=== PATIENT | female | born 1965 | race Caucasian/White ===

== ENCOUNTER 2017-01-10 14:02 | Inpatient (IN) ==
[2017-01-10] MEDS ORDERED: HYDROmorphone 2 MG/1 ML VIAL IV STA (14:18)
[2017-01-10] MEDS ORDERED: ONDANSETRON 4 MG/2 ML VIAL IV STA (14:18)
[2017-01-10] MEDS ORDERED: ONDANSETRON 4 MG/2 ML VIAL ONE (14:39)
[2017-01-10] MEDS ORDERED: HYDROmorphone 2 MG/1 ML VIAL ONE (14:39)
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
[2017-01-10] MEDS ORDERED: ONDANSETRON 4 MG/2 ML VIAL IV PRN (14:58)
[2017-01-10] MEDS ORDERED: KETOROLAC 15 MG/1 ML VIAL IV PRN (14:58)
[2017-01-10] MEDS ORDERED: HYDROmorphone 2 MG/1 ML VIAL IV PRN (14:58)
[2017-01-10] MEDS ORDERED: DEXTROSE 5% NACL 0.45% 1,000 ML IV SCH (15:00)
[2017-01-10 15:36] LABS: Hematocrit 31.5 VOL% (35.7-47.0); Hemoglobin 9.6 GM/DL (12.0-16.0)
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
[2017-01-10] MEDS ORDERED: oxyCODONE/ACETAMINOPHEN 5-325 MG TABLET PO PRN (16:34)
[2017-01-10] MEDS: LACTATED RINGERS 1,000 ML IV SCH (17:11)
[2017-01-10 17:52] LABS: Apearance,Urine CLEAR (Clear); Bilirubin,Urine Negative (Negative); Blood, Urine Moderate mg/dL (Negative); Glucose,Urine (UA) Negative (Negative); Ketones,Urine Negative (Negative); Nitrite,Urine Negative (Negative); Protein,Urine Negative; RBC,Urine 7 /HPF (0-4); Urine Color Straw (Yellow); Urine Specific Gravity 1.023 (1.001-1.035); Urine Urobilinogen < 2.0 EU/DL (0.2-1.0); WBC,Urine 3 /HPF (0-6)
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
[2017-01-10 18:15] LABS: PT Patient Result 10.7 SECS; Partial Thromboplastin Time 25.7 SECS (0-40)
[2017-01-10] MEDS: ACETAMINOPHEN 325 MG TABLET PO PRN (20:31)
[2017-01-10] MEDS: ONDANSETRON 4 MG/2 ML VIAL IV PRN (20:32)
[2017-01-10] MEDS: PREGABALIN 75 MG CAPSULE PO SCH (21:38)
[2017-01-10] MEDS: QUEtiapine 100 MG TABLET PO SCH (21:38)
[2017-01-10] MEDS: ALPRAZolam 0.5 MG TABLET PO SCH (21:39)
[2017-01-10] MEDS: oxyCODONE/ACETAMINOPHEN 5-325 MG TABLET PO PRN (21:39)
[2017-01-10] MEDS: tiZANidine 4 MG TABLET PO PRN (21:46)
[2017-01-10] MEDS: clonazePAM 0.5 MG TABLET PO SCH (21:46)
[2017-01-10] MEDS ORDERED: NALOXONE 0.4 MG/ML VIAL IV PRN (22:54)
[2017-01-10] MEDS: HYDROmorphone PCA 30 MG/30 ML SYRINGE IV SCH (23:15)
[2017-01-11] MEDS ORDERED: SODIUM CHLORIDE 0.9% 250 ML IV PRN (01:10)
[2017-01-11] MEDS ORDERED: LACTATED RINGERS 1,000 ML IV ONE (01:10)
[2017-01-11] MEDS: LACTATED RINGERS 1,000 ML IV SCH (02:22)
[2017-01-11] MEDS: ALBUTEROL/IPRATROPIUM 3 ML NEB RESP TX PRN ×2 (05:02→22:11)
[2017-01-11] MEDS: PROMETHAZINE 25 MG/1 ML VIAL IM PRN ×2 (05:14→11:38)
[2017-01-11 05:19] LABS: Basophils % 0.2 % (0.0-0.8); Eosinophils # 0.2 10*3/uL (0.0-0.87); Eosinophils % 4.6 % (0.00-10.9); Hematocrit 28.5 VOL% (35.7-47.0); Hemoglobin 8.3 GM/DL (12.0-16.0); Immature Granulocytes % 0.2 %; Immature Granulocytes Absolute 0.01 #; Lymphocytes # 1.5 10*3/uL (1.4-4.0); Mean Corpuscular HGB Conc 29.1 GM/DL (32-36); Mean Corpuscular Hemoglobin 24 PG (27-34); Mean Corpuscular Volume 83.1 FL (87-102); Mean Platelet Volume 11.7 FL (9.6-12.0); Monocytes # 0.5 10*3/uL (0.11-0.8); Neutrophils # 2.1 10*3/uL (1.4-7.4); Platelet Count 141 T/CUMM (130-400); Red Blood Count 3.43 MC/CUMM (3.8-5.5); Red Cell Distribution Width 18.2 % (9.3-17.3); White Blood Count 4.3 T/CUMM (4-12)
[2017-01-11 05:40] LABS: Calcium 8.4 MG/DL (8.5-10.1); Osmolality,Calculated 282.8 MOS/KG (273-304); Potassium 4.1 MMOL/L (3.5-5.1)
[2017-01-11] MEDS: PREGABALIN 75 MG CAPSULE PO SCH ×3 (09:18→21:06)
[2017-01-11] MEDS: ALPRAZolam 0.5 MG TABLET PO SCH ×2 (09:19→20:45)
[2017-01-11] MEDS: buPROPion SR 150 MG TABLET PO SCH (09:22)
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
[2017-01-11] MEDS: oxyCODONE/ACETAMINOPHEN 5-325 MG TABLET PO PRN ×2 (13:35→14:55)
[2017-01-11 15:52] LABS: Hematocrit 25.7 VOL% (35.7-47.0); Hemoglobin 7.7 GM/DL (12.0-16.0)
--- NOTE | 2017-01-11 16:58 | Operative Note ---
Date of procedure: 01/11/17 Pre-op diagnosis: Inadequate venous access Post-op diagnosis: same Procedure: Preoperative diagnosis Inadequate venous access Postoperative diagnosis Same Procedures performed 1. Right internal jugular vein central line placement 2. Ultrasound guidance and interpretation of images Findings The right internal jugular vein was accessed with Seldinger technique and a triple-lumen catheter was placed chest x-ray was ordered. Complications None apparent Specimen None Anesthesia Local 1% lidocaine 10 cc Indications Inadequate venous access Description of procedure The patient was placed in the Trendelenburg position in her ICU bed. The neck was prepped with chlorhexidine and draped sterilely. Timeout was called. Full sterile barrier precautions were used. The ultrasound was used to identify the vascular structures in the right neck. Internal jugular vein was identified and was compressible. The carotid was also seen. Internal jugular venous access after local anesthetic was administered and venous blood return was achieved those nonpulsatile. Ultrasound was used to confirm venous placement of the wire. An incision was made alongside the wire and dilator was passed the triple-lumen catheter was then placed over the wire Seldinger technique and some of the skin with 3-0 silk sutures. Sterile dressing was applied and all 3 ports returned blood easily and were flushed with saline. Chest x-ray was ordered to confirm placement and evaluate for any complications. Postoperative plan Chest x-ray Implants: triple lumen catheter Anesthesia: local Surgeon / Physician: Corey Crowell Estimated blood loss: minimal Specimens: none sent Condition: stable Disposition: ICU Results - Labs CBC & BMP: 01/11/17 15:47 01/11/17 04:41 Discharge Plan - Discharge Medications No Action Oxycodone HCl/Acetaminophen [Percocet 10-325 mg Tablet] 1 each PO TID PRN PRN Reason: Pain Levothyroxine Tab [Synthroid Tab] 100 mcg PO DAILY@0700 buPROPion SR [Wellbutrin Sr] 450 mg PO DAILY clonazePAM [Klonopin] 2 mg PO BEDTIME ALPRAZolam [Xanax] 1 mg PO BID Quetiapine Fumarate [Seroquel] 300 mg PO BEDTIME Pregabalin [Lyrica] 150 mg PO TID Tizanidine HCl [Zanaflex] 4 mg PO BID PRN PRN Reason: Muscle Pain Fluticasone/Salmeterol 250-50 [Advair 250-50] 1 puff INH BID Albuterol Sulfate [Ventolin HFA] 2 puff INH Q4H PRN PRN Reason: Shortness Of Breath/Wheezing - Follow Up or Referral - Forms/Instructions
--- NOTE | 2017-01-11 17:41 | XRay Report ---
Referring Physician: Corey Crowell Exam: XR chest 1V portable Date: January 11, 2017 at 4:47 PM Reason: Central line placement Comparison: Chest 2 views November 30, 2016 Findings: A right IJ catheter is present with its distal tip at the SVC/right atrial junction. Neurostimulator leads again project at the lower thoracic spine, and now project at the upper thoracic spine. The cardiac silhouette is upper normal in size. There is minimal atelectasis at the lung bases, but no pneumothorax or pleural effusion is identified. The osseous structures appear stable with surgical fusion of the lower cervical spine. Note is made of a probable lap band device. Impression: 1. A right IJ catheter is in place with its distal tip at the SVC/right atrial junction. 2. Neurostimulator leads are now seen at the upper thoracic spine. 3. Minimal bibasilar atelectasis. PROCEDURE INTERPRETED AT [facility] DEPARTMENT OF RADIOLOGY Final Report Signed by: Dr. Yduith Alva
[2017-01-11] MEDS: DEXT 5% NACL 0.45% KCL 20 MEQ 20 MEQ/1,000 ML BAG IV SCH (17:52)
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
[2017-01-11] MEDS: QUEtiapine 100 MG TABLET PO SCH (20:44)
[2017-01-11] MEDS: clonazePAM 0.5 MG TABLET PO SCH (20:44)
[2017-01-11 22:15] LABS: Hematocrit 25.1 VOL% (35.7-47.0); Hemoglobin 7.5 GM/DL (12.0-16.0)
[2017-01-12] MEDS: HYDROmorphone PCA 30 MG/30 ML SYRINGE IV SCH (02:05)
[2017-01-12] MEDS: oxyCODONE/ACETAMINOPHEN 5-325 MG TABLET PO PRN (02:16)
[2017-01-12 04:47] LABS: Basophils % 0.2 % (0.0-0.8); Eosinophils # 0.2 10*3/uL (0.0-0.87); Eosinophils % 3.3 % (0.00-10.9); Hematocrit 25.7 VOL% (35.7-47.0); Hemoglobin 7.6 GM/DL (12.0-16.0); Immature Granulocytes % 0.2 %; Immature Granulocytes Absolute 0.01 #; Lymphocytes # 1.1 10*3/uL (1.4-4.0); Lymphocytes % 19.6 % (21.3-54.2); Mean Corpuscular HGB Conc 29.6 GM/DL (32-36); Mean Corpuscular Hemoglobin 24 PG (27-34); Mean Corpuscular Volume 81.8 FL (87-102); Mean Platelet Volume 10.7 FL (9.6-12.0); Monocytes # 0.6 10*3/uL (0.11-0.8); Monocytes % 10.1 % (1.7-12.7); Neutrophils # 3.6 10*3/uL (1.4-7.4); Neutrophils % 66.6 % (38.7-73.9); Platelet Count 153 T/CUMM (130-400); Red Blood Count 3.14 MC/CUMM (3.8-5.5); Red Cell Distribution Width 17.8 % (9.3-17.3); White Blood Count 5.4 T/CUMM (4-12)
[2017-01-12 05:14] LABS: Albumin 2.6 G/DL (3.4-5.0); Osmolality,Calculated 279.1 MOS/KG (273-304); Potassium 3.7 MMOL/L (3.5-5.1); Total Protein 5.5 G/DL (6.4-8.3)
[2017-01-12] MEDS: DEXT 5% NACL 0.45% KCL 20 MEQ 20 MEQ/1,000 ML BAG IV SCH ×2 (07:21→20:32)
--- NOTE | 2017-01-12 07:53 | Urology Progress Note ---
Assessment and Plan (1) Kidney laceration Status: Acute Assessment and plan: We will maintain bedrest and observation. Repeat CT scan in a few days. Follow hematocrits. Current Visit: Yes Qualifiers: Laterality: left Urology - PN: Subj Interval history: Patient has had a stable night. H&H is down to 7.5 and 25. I think some of this is delusional but is not a big drop from her initial hemoglobin and hematocrit. I do not think her bleeding at this point. Urine has remained clear. She is being transferred to the floor which is fine with me. We will keep her at bedrest. We may begin bathroom privileges at 72 hours. I will have the nurse asked Dr. Crowell if SCDs would be better than the TEDs. I know she has a contusion on her left ankle which may be aggravated by an STD. But I will run this by him. Patient is stable at this point. Exam - Constitutional Vitals: Period Temp Pulse Resp BP Sys/Michaels Pulse Ox Last 24 Hr 98.6 F-99.2 F 77-118 13-34 74-150/58-113 89-100 Results - Labs CBC & BMP: 01/12/17 04:30 01/12/17 04:30
[2017-01-12] MEDS: PREGABALIN 75 MG CAPSULE PO SCH ×3 (08:17→20:27)
[2017-01-12] MEDS: PROMETHAZINE 25 MG/1 ML VIAL IM PRN (08:17)
[2017-01-12] MEDS: ALPRAZolam 0.5 MG TABLET PO SCH ×2 (08:18→20:28)
[2017-01-12] MEDS: buPROPion SR 150 MG TABLET PO SCH (08:18)
--- NOTE | 2017-01-12 08:31 | General Surgery Progress Note ---
Assessment and Plan (1) Kidney laceration Status: Acute Assessment and plan: The patient will be advance to diet as tolerated. She is going to be moved to a regular floor bed today and will repeat her labs tomorrow. She will remain with a Pearl catheter today on bedrest. Continue pain control. The patient is not a candidate for chemoprophylaxis against volume venous thrombus embolism because of her kidney laceration. She will be treated with sequential compression devices as her sole means of DVT prophylaxis because of this. These were not on today but the order has been in the chart for 2 days and we will make sure he gets done from here forward. Current Visit: Yes Qualifiers: Laterality: left Subjective Patient reports: Present: no new complaints, feels better, still having pain, pain is less, tolerating liquids well, afebrile. Absent: nausea, vomiting, shortness of breath Narrative: The patient had a fairly uneventful night last night. Her hemoglobin has stabilized. Her urine output is adequate. Her labs this morning were reviewed. She is tolerating some liquids but feels a little nauseated still with regular food. The patient's blood pressure has been a little bit low overnight but she is not tachycardic. Exam - Constitutional Vitals: Period Temp Pulse Resp BP Sys/Michaels Pulse Ox Last 24 Hr 98.6 F-99.2 F 77-118 13-34 74-150/58-113 89-100 General appearance: no acute distress, over weight - Head Head exam: Present: normal inspection, normocephalic - Eye Eye exam: Present: EOMI Pupils: Present: STEPHANIE - ENT ENT exam: Present: normal exam Mouth exam: Present: normal external inspection, normal voice - Neck Neck exam: Present: normal inspection, trachea midline - Respiratory Respiratory exam: Present: clear to auscultation bilaterally. Absent: accessory muscle use, chest wall tenderness - Cardiovascular Cardiovascular exam: Present: RRR. Absent: systolic murmur, tachycardia - GI/Abdominal GI/Abdominal exam: Present: normal bowel sounds, tenderness (She is less tender than yesterday and most of her tenderness is on the left flank. There is no abdominal tenderness.), soft. Absent: rebound - Extremities Exam Extremities exam: Present: normal inspection, normal capillary refill - Back Exam Back exam: Present: normal inspection - Neurological Exam Neurological exam: Present: alert, oriented X3 Speech: Present: normal - Skin Skin exam: Present: normal color, warm Results - Labs CBC & BMP: 01/12/17 04:30 01/12/17 04:30
[2017-01-12] MEDS ORDERED: ALBUTEROL 2.5 MG/3 ML NEB RESP TX PRN (11:00)
[2017-01-12] MEDS: ONDANSETRON 4 MG/2 ML VIAL IV PRN (11:23)
[2017-01-12] MEDS: FLUTICASONE/SALMETEROL 250-50 DISKUS 14 DOSE INH SCH ×2 (13:09→20:27)
[2017-01-12] MEDS: QUEtiapine 100 MG TABLET PO SCH (20:27)
[2017-01-12] MEDS: clonazePAM 0.5 MG TABLET PO SCH (20:28)
[2017-01-13] MEDS: HYDROmorphone PCA 30 MG/30 ML SYRINGE IV SCH (00:35)
[2017-01-13] MEDS: LACTATED RINGERS 1,000 ML IV SCH (00:35)
[2017-01-13] MEDS: LEVOTHYROXINE 100 MCG TABLET PO SCH (06:07)
[2017-01-13 06:16] LABS: Basophils % 0.2 % (0.0-0.8); Eosinophils # 0.1 10*3/uL (0.0-0.87); Eosinophils % 1.3 % (0.00-10.9); Hematocrit 25.5 VOL% (35.7-47.0); Hemoglobin 7.7 GM/DL (12.0-16.0); Immature Granulocytes % 0.5 %; Immature Granulocytes Absolute 0.03 #; Lymphocytes # 0.5 10*3/uL (1.4-4.0); Lymphocytes % 8.6 % (21.3-54.2); Mean Corpuscular HGB Conc 30.2 GM/DL (32-36); Mean Corpuscular Hemoglobin 24 PG (27-34); Mean Platelet Volume 11.6 FL (9.6-12.0); Monocytes # 0.4 10*3/uL (0.11-0.8); Neutrophils # 4.6 10*3/uL (1.4-7.4); Neutrophils % 82.4 % (38.7-73.9); Platelet Count 143 T/CUMM (130-400); Red Blood Count 3.15 MC/CUMM (3.8-5.5); Red Cell Distribution Width 17.9 % (9.3-17.3); White Blood Count 5.6 T/CUMM (4-12)
[2017-01-13 06:47] LABS: Magnesium 1.8 MG/DL (1.8-2.4); Potassium 3.9 MMOL/L (3.5-5.1)
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
[2017-01-13] MEDS: PREGABALIN 75 MG CAPSULE PO SCH ×3 (09:30→22:22)
[2017-01-13] MEDS: FLUTICASONE/SALMETEROL 250-50 DISKUS 14 DOSE INH SCH ×2 (09:31→22:32)
[2017-01-13] MEDS: buPROPion SR 150 MG TABLET PO SCH (10:01)
--- NOTE | 2017-01-13 11:22 | XRay Report ---
Referring Physician: RITCHIE Jiménez Exam: XR chest 1V portable Date: January 13, 2017 at 10:42 AM Reason: Cough, fever Comparison: Chest one view portable January 11, 2017 Findings: A right IJ catheter and spinal neurostimulator leads are again in place. The cardiac sweating is upper normal in size. There are mild bibasilar opacities. They are favored to represent atelectasis, but superimposed pneumonia is not excluded. No pneumothorax or pleural effusion is identified. The osseous structures appear stable. Impression: Mild bibasilar opacities are present and are slightly more prominent today. This likely represents atelectasis, but superimposed pneumonia is not excluded. PROCEDURE INTERPRETED AT [facility] DEPARTMENT OF RADIOLOGY Final Report Signed by: Dr. Yudith Alva
[2017-01-13] MEDS: oxyCODONE/ACETAMINOPHEN 5-325 MG TABLET PO PRN ×2 (12:02→16:36)
[2017-01-13] MEDS: PROMETHAZINE 25 MG/1 ML VIAL IM PRN ×2 (12:04→18:27)
--- NOTE | 2017-01-13 12:40 | Urology Progress Note ---
Assessment and Plan (1) Kidney laceration Status: Acute Assessment and plan: We will maintain bedrest and observation. Repeat CT scan in a few days. Follow hematocrits. Current Visit: Yes Qualifiers: Laterality: left Urology - PN: Subj Interval history: Patient has had a stable night. H&H is stable. She is complaining more pain in her lower flank. She wants more pain medicine. She is a chronic pain patient in the pain clinic with Dr. Yan. We will consult him. We will remove her Pearl catheter and she may have bathroom privileges only. Otherwise she must remain in bed. Exam - Constitutional Vitals: Period Temp Pulse Resp BP Sys/Michaels Pulse Ox Last 24 Hr 97.0 F-102.2 F 70-115 16-20 85-122/46-90 90-95 Results - Labs CBC & BMP: 01/13/17 05:43 01/13/17 05:43
--- NOTE | 2017-01-13 12:55 | Event Note ---
The patient was seen and examined. SCDs were in place. Her cough she reports is progressive but nonproductive at this time. She denies shortness of breath or wheeze. While interviewing the patient in the room, she did not recall that she had a breakfast tray which she declined to eat. Nurse reports she was difficult to awaken this morning as well. LOOP TENDER pump has been discontinued at this time. Patient was likely slightly oversedated this morning. We will transition to oral pain medication with IV for breakthrough pain only. We can titrate as warranted based on patient's clinical response. Patient was febrile and tachycardic overnight. We will obtain chest x-ray. She still requires bedrest, so we will encourage aggressive incentive spirometer and initiate nebulizer treatments scheduled. Follow-up on chest x- ray. CTA head and neck is pending.
[2017-01-13] MEDS: ALBUTEROL 2.5 MG/3 ML NEB RESP TX SCH ×2 (14:10→19:46)
[2017-01-13] MEDS: ALPRAZolam 0.5 MG TABLET PO SCH ×2 (15:07→22:32)
--- NOTE | 2017-01-13 15:28 | CT Report ---
CT angio neck, CT angio head Indication: Trauma. CT ANGIOGRAM CAROTID ARTERIES DLP: 146 mGy*cm. One or more of the following dose reduction techniques was used: Automated exposure control, adjustment of the mA and/or kV according the patient size, or use of iterative reconstruction techniques. Technique: Axial thin cuts CT images were obtained from the aortic arch through the skull base during the arterial phase of contrast injection. 3-D vascular MIPs reconstructions and multiplanar reformats were evaluated. Omnipaque 350, 80 cc given. Comparison: None. Findings: Severity of stenosis based on NASCET criteria. Reference downstream ICA diameters are 4.3 mm bilaterally. No ICA stenosis on either side with no significant atheromatous disease present in the carotid system. Within the left ICA, lateral aspect, at the level of the tip of the left styloid process between C1-2, there is an extremely subtle, tiny and shallow less than 1 mm deep pseudoaneurysm protruding laterally. Suspect this is posttraumatic, acuity unknown. The right ICA is unremarkable. No flow limitation, extravasation or perivascular hematoma shown. Both common carotid arteries are widely patent. The vertebral arteries are bilaterally patent and symmetric. Subclavian arteries are widely patent. The aortic arch is unremarkable. A right IJ central line extends into the SVC. Tip of the catheters are not included on this exam. Borderline 9 mm short axis lymph nodes are present in the upper mediastinum. No pathologic cervical chain lymphadenopathy. Stents of surgical hardware from previous cervical spine fusion C4-5-6-7 noted from both an anterior and posterior approach. Cervical spine alignment is maintained. No paraspinous hematoma. The hardening artifact is significant however. Patchy groundglass opacities are present in both pulmonary apices, nonspecific. Epidural stimulator is present terminating mid cervical region. Previous maxillary sinus surgery noted. Visualized sinuses and mastoid air cells are clear. Impression: 1. 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 Consider anticoagulation and follow-up CT angiogram in 2-4 weeks. The acuity of this finding is indeterminate as there is no paraspinous hematoma or significant dissection present. 2. Borderline superior mediastinal lymphadenopathy. 3. Postoperative changes of extensive cervical spine surgery. Epidural stimulator mid cervical spine. 4. Patchy areas of groundglass opacity the pulmonary apices, nonspecific. CT ANGIOGRAM [place] OF [place] DLP: 146 mGy*cm. One or more of the following dose reduction techniques was used: Automated exposure control, adjustment of the mA and/or kV according the patient size, or use of iterative reconstruction techniques. Technique: Axial thin cut CT images were obtained from the skull base to the vertex during arterial phase of contrast injection. 3-D vascular MIPs reconstructions and multiplanar reformats were evaluated. Omnipaque 350, 80 cc given. Comparison: None. Findings: Both internal carotid arteries are widely patent through the skull base. The MCA and YARITZA vasculature is bilaterally symmetric. Basilar artery originates from both vertebral arteries and is normal in caliber. The basilar artery terminates in bilateral PIE BAKER. No intracranial aneurysmal disease. No flow cut off. Surgical defect left posterior fossa craniotomy noted, remote. No underlying encephalomalacia. Impression: Negative CT angiogram cap[place] of [place]. PROCEDURE INTERPRETED AT [facility] DEPARTMENT OF RADIOLOGY Final Report Signed by: Dre Zaragoza M.D.
[2017-01-13] MEDS ORDERED: SODIUM CHLORIDE 0.9% 500 ML IV ONE (15:29)
[2017-01-13] MEDS ORDERED: SODIUM CHLORIDE 0.9% 1,000 ML IV SCH (15:30)
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
[2017-01-13 20:12] LABS: Basophils % 0.2 % (0.0-0.8); Eosinophils # 0.1 10*3/uL (0.0-0.87); Eosinophils % 2.8 % (0.00-10.9); Hemoglobin 6.5 GM/DL (12.0-16.0); Immature Granulocytes % 0.6 %; Immature Granulocytes Absolute 0.03 #; Mean Corpuscular HGB Conc 29.5 GM/DL (32-36); Mean Corpuscular Hemoglobin 24 PG (27-34); Mean Corpuscular Volume 81.8 FL (87-102); Mean Platelet Volume 12.1 FL (9.6-12.0); Monocytes # 0.5 10*3/uL (0.11-0.8); Monocytes % 9.5 % (1.7-12.7); Neutrophils # 3.4 10*3/uL (1.4-7.4); Neutrophils % 66.9 % (38.7-73.9); Platelet Count 134 T/CUMM (130-400); Red Blood Count 2.69 MC/CUMM (3.8-5.5); Red Cell Distribution Width 17.9 % (9.3-17.3); White Blood Count 5.1 T/CUMM (4-12)
[2017-01-13] MEDS: HYDROmorphone 2 MG/1 ML VIAL IV PRN (21:41)
[2017-01-13] MEDS: QUEtiapine 100 MG TABLET PO SCH (22:21)
[2017-01-13] MEDS: clonazePAM 0.5 MG TABLET PO SCH (22:22)
[2017-01-13] MEDS: LIDOCAINE 5% PATCH TRANSDERM SCH (22:22)
[2017-01-13] MEDS: HEPARIN DRIP 25,000 UNITS/500 ML PREMIX IV SCH (22:28)
[2017-01-14] MEDS: HYDROmorphone 2 MG/1 ML VIAL IV PRN ×3 (04:35→16:06)
[2017-01-14] MEDS: ALBUTEROL 2.5 MG/3 ML NEB RESP TX SCH ×4 (05:19→20:49)
[2017-01-14 05:54] LABS: Basophils % 0.2 % (0.0-0.8); Eosinophils # 0.2 10*3/uL (0.0-0.87); Eosinophils % 3.3 % (0.00-10.9); Hematocrit 22.2 VOL% (35.7-47.0); Hemoglobin 6.6 GM/DL (12.0-16.0); Immature Granulocytes % 0.4 %; Immature Granulocytes Absolute 0.02 #; Lymphocytes # 0.9 10*3/uL (1.4-4.0); Lymphocytes % 19.4 % (21.3-54.2); Mean Corpuscular HGB Conc 29.7 GM/DL (32-36); Mean Corpuscular Hemoglobin 25 PG (27-34); Mean Corpuscular Volume 82.5 FL (87-102); Mean Platelet Volume 12.3 FL (9.6-12.0); Monocytes # 0.4 10*3/uL (0.11-0.8); Monocytes % 8.9 % (1.7-12.7); Neutrophils # 3.1 10*3/uL (1.4-7.4); Neutrophils % 67.8 % (38.7-73.9); Platelet Count 126 T/CUMM (130-400); Red Blood Count 2.69 MC/CUMM (3.8-5.5); Red Cell Distribution Width 17.9 % (9.3-17.3); White Blood Count 4.6 T/CUMM (4-12)
[2017-01-14] MEDS: PROMETHAZINE 25 MG/1 ML VIAL IM PRN ×2 (06:13→16:05)
[2017-01-14] MEDS: oxyCODONE/ACETAMINOPHEN 5-325 MG TABLET PO PRN (06:13)
[2017-01-14] MEDS: LEVOTHYROXINE 100 MCG TABLET PO SCH (06:14)
[2017-01-14 06:41] LABS: PT Patient Result 10.9 SECS; Partial Thromboplastin Time 32.1 SECS (0-40)
[2017-01-14] MEDS ORDERED: SODIUM CHLORIDE 0.9% 250 ML IV PRN (06:55)
--- NOTE | 2017-01-14 07:57 | General Surgery Progress Note ---
Assessment and Plan (1) Kidney laceration Status: Acute Assessment and plan: This patient has a grade 3 kidney laceration and was moved back to the ICU last night or rather the CCU for monitoring due to the need to start heparin infusion for a blunt carotid artery injury. Her hemoglobins have drifted down 1 g overnight but then were stable on this morning's labs but we will go ahead and transfuse her 2 units of packed red blood cells and continue to monitor this. Her PTT is not therapeutic yet. Dr. Albarado has said that her Pearl can come out and have bathroom privileges so we will do that this morning. If she decompensates at all she will need a repeat CT of her abdomen and either embolization or laparotomy and nephrectomy control of hemorrhage. The patient understands the difficult situation that she is in and also understands her risk of bleeding on a heparin drip. However, she is agreeable to do this because of the risk of stroke with no anticoagulation because of her blunt carotid artery injury. Current Visit: Yes Qualifiers: Laterality: left (2) Internal carotid artery injury Status: Acute Assessment and plan: This patient has a grade 3 blunt carotid artery injury. There is up to a 60% risk of stroke if this is left untreated. I discussed this with the patient and we have started a heparin infusion and will plan to repeat a CTA of her head and neck in 7 days to see if this area has healed or if we can downgrade her anticoagulation at all. There is an obvious risk of bleeding with her kidney laceration but the anticoagulation should be safe and is necessary to prevent stroke and this was discussed with the patient in detail Current Visit: Yes Subjective Patient reports: Present: no new complaints, still having pain, pain is less, tolerating a regular diet, afebrile Narrative: The patient was moved to the CCU overnight due to the findings of a pseudoaneurysm or dissection of her internal carotid artery on the left side and the need for heparin infusion. She has been doing well hemodynamically but her hemoglobin is down to 6.6. Her urine is still clear and her Pearl is still in. Her pain overall is well controlled and Dr. Rivera is seen her to assist with pain control. She has not had any symptoms of TIA or stroke. Exam - Constitutional Vitals: Period Temp Pulse Resp BP Sys/Michaels Pulse Ox Last 24 Hr 97.5 F-99.8 F 82-112 16-24 90-125/52-78 90-100 General appearance: no acute distress, over weight - Head Head exam: Present: normal inspection, normocephalic - Eye Eye exam: Present: EOMI Pupils: Present: STEPHANIE - ENT ENT exam: Present: normal exam Mouth exam: Present: normal external inspection, normal voice - Neck Neck exam: Present: normal inspection, trachea midline - Respiratory Respiratory exam: Present: clear to auscultation bilaterally. Absent: accessory muscle use, chest wall tenderness - Cardiovascular Cardiovascular exam: Present: RRR. Absent: systolic murmur, tachycardia - GI/Abdominal GI/Abdominal exam: Present: tenderness (Appropriate and decreasing tenderness of the left abdomen and flank), soft. Absent: rebound - Extremities Exam Extremities exam: Present: normal inspection, normal capillary refill - Back Exam Back exam: Present: normal inspection - Neurological Exam Neurological exam: Present: alert, oriented X3 Speech: Present: normal - Skin Skin exam: Present: normal color, warm Results - Labs CBC & BMP: 01/14/17 04:15 01/13/17 05:43 - Diagnostic Findings Procedure: CT: report reviewed by me, image reviewed by me (Small pseudoaneurysm /dissection flap of the extracranial left internal carotid artery)
[2017-01-14] MEDS: FLUTICASONE/SALMETEROL 250-50 DISKUS 14 DOSE INH SCH ×2 (08:14→21:27)
[2017-01-14] MEDS: LIDOCAINE 5% PATCH TRANSDERM SCH (08:14)
[2017-01-14] MEDS: ALPRAZolam 0.5 MG TABLET PO SCH ×2 (08:16→21:30)
[2017-01-14] MEDS: buPROPion SR 150 MG TABLET PO SCH (08:16)
[2017-01-14] MEDS: PREGABALIN 75 MG CAPSULE PO SCH ×3 (08:16→21:32)
[2017-01-14] MEDS: ONDANSETRON 4 MG/2 ML VIAL IV PRN (08:23)
--- NOTE | 2017-01-14 10:42 | Urology Progress Note ---
Assessment and Plan (1) Kidney laceration Status: Acute Assessment and plan: We will maintain bedrest and observation. Repeat CT scan in a few days. Follow hematocrits. Current Visit: Yes Qualifiers: Laterality: left Urology - PN: Subj Interval history: From a standpoint patient is stable. She was found to have a blood carotid injury which required IV heparin. She is placed in the coronary care unit to monitor her because of the anticoagulation and her grade 3 renal injury. Her H &H did drift down to 6.6 and 22.2. She is presently getting blood. She is not having any gross hematuria. She still has some mild left flank pain but that has not changed in the last 12 hours. Her exam reveals left upper quadrant tenderness. There is no mass-effect. We will continue to monitor closely. We will reimage her if she changes clinically. Exam - Constitutional Vitals: Period Temp Pulse Resp BP Sys/Michaels Pulse Ox Last 24 Hr 97.5 F-99.8 F 82-112 15-24 90-125/52-78 90-100 Results - Labs CBC & BMP: 01/14/17 04:15 01/13/17 05:43
--- NOTE | 2017-01-14 11:41 | Physician Query Form ---
CLICK EDIT DOCUMENT TO SELECT QUERY ANSWER --> OK --> SIGN Mary Kidd RN Clinical Sales Account Leader W) [phone] (f) [phone] [email or web address]: Make your selection(s) from the choices in EACH section by typing an "x" and enter comments in the comment section. Please use your independent medical judgment in providing your response. This request does not imply that any particular answer is desired or expected. CLINICAL INDICATORS: (Providers should not edit this section) Based on documentation of "Her hemoglobins have drifted down 1 g overnight but then were stable on this morning's labs but we will go ahead and transfuse her 2 units of packed red blood cells and continue to monitor this". H/H on admission of 05/20 and dropped to 03/11. Based on the above, could you clarify which of the following conditions you are evaluating, treating, and/or monitoring? ( ) Blood loss anemia ( ) acute ( ) chronic ( ) acute on chronic ( ) Acute blood loss anemia on baseline chronic anemia ( ) Acute blood loss anemia as a complication of a procedure ( ) Iron deficiency anemia not associated with blood loss ( ) Dilutional anemia due to IV fluids ( ) Anemia due to chemotherapy ( ) Anemia due to neoplastic disease ( ) Anemia due to chronic kidney disease ( ) Pernicious anemia ( ) Aplastic anemia ( ) Hemolytic anemia ( ) immune ( ) non-immune - please specify cause: ( ) Anemia due to other condition, please specify: ( ) Clinically unable to determine COMMENTS: Use of terms such as suspected, likely, or probable (associated with a specific diagnosis that is being evaluated, monitored, or treated as if it exists) are acceptable and can be restated in the discharge summary if not ruled out. MTDD
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
[2017-01-14] MEDS ORDERED: HEPARIN 5,000 UNIT/1 ML VIAL IV ONE (15:55)
[2017-01-14 16:11] LABS: Hematocrit 28.3 VOL% (35.7-47.0)
[2017-01-14 16:12] LABS: Hemoglobin 8.6 GM/DL (12.0-16.0)
[2017-01-14] MEDS: HEPARIN DRIP 25,000 UNITS/500 ML PREMIX IV SCH (21:28)
[2017-01-14] MEDS: clonazePAM 0.5 MG TABLET PO SCH (21:31)
[2017-01-14] MEDS: QUEtiapine 100 MG TABLET PO SCH (21:32)
[2017-01-14] MEDS: tiZANidine 4 MG TABLET PO PRN (21:32)
[2017-01-15] MEDS: ALBUTEROL 2.5 MG/3 ML NEB RESP TX SCH ×4 (00:27→19:31)
[2017-01-15] MEDS: oxyCODONE/ACETAMINOPHEN 5-325 MG TABLET PO PRN ×3 (03:44→16:02)
[2017-01-15 05:07] LABS: Basophils % 0.2 % (0.0-0.8); Eosinophils # 0.1 10*3/uL (0.0-0.87); Eosinophils % 2.1 % (0.00-10.9); Hemoglobin 8.4 GM/DL (12.0-16.0); Immature Granulocytes % 0.4 %; Immature Granulocytes Absolute 0.02 #; Lymphocytes % 18.6 % (21.3-54.2); Mean Corpuscular HGB Conc 31.1 GM/DL (32-36); Mean Corpuscular Hemoglobin 25 PG (27-34); Mean Corpuscular Volume 80.8 FL (87-102); Mean Platelet Volume 11.6 FL (9.6-12.0); Monocytes # 0.4 10*3/uL (0.11-0.8); Monocytes % 7.5 % (1.7-12.7); Neutrophils # 3.7 10*3/uL (1.4-7.4); Neutrophils % 71.2 % (38.7-73.9); Platelet Count 152 T/CUMM (130-400); Red Blood Count 3.34 MC/CUMM (3.8-5.5); Red Cell Distribution Width 17.4 % (9.3-17.3); White Blood Count 5.2 T/CUMM (4-12)
[2017-01-15 05:15] LABS: INR 1.1; PT Patient Result 11.4 SECS; Partial Thromboplastin Time 36.5 SECS (0-40)
[2017-01-15 06:00] LABS: Magnesium 2.4 MG/DL (1.8-2.4); Osmolality,Calculated 284.8 MOS/KG (273-304); Potassium 3.5 MMOL/L (3.5-5.1)
[2017-01-15] MEDS: buPROPion SR 150 MG TABLET PO SCH (08:37)
[2017-01-15] MEDS: PREGABALIN 75 MG CAPSULE PO SCH ×3 (08:39→20:48)
[2017-01-15] MEDS: LEVOTHYROXINE 100 MCG TABLET PO SCH (08:39)
[2017-01-15] MEDS: ALPRAZolam 0.5 MG TABLET PO SCH (08:40)
[2017-01-15] MEDS: FLUTICASONE/SALMETEROL 250-50 DISKUS 14 DOSE INH SCH ×2 (08:52→20:49)
[2017-01-15] MEDS: LIDOCAINE 5% PATCH TRANSDERM SCH (08:52)
--- NOTE | 2017-01-15 09:57 | General Surgery Progress Note ---
Assessment and Plan (1) Internal carotid artery injury Status: Acute Assessment and plan: No focal neuro deficits noted at this time. Will perform q4h neuro checks until PTT therapeutic at least 24 hrs. Continue heparin drip with pharm dosing. Current Visit: Yes (2) Kidney laceration Status: Acute Assessment and plan: Adequate UO. H/H stable. Continue to monitor h/h until PTT therapeutic and hemodynamically stable x 24 hrs. Bedrest with bathroom privileges. Current Visit: Yes Qualifiers: Laterality: left (3) COPD (chronic obstructive pulmonary disease) Status: Acute Assessment and plan: Pt with worsening cough. I believe medications need to be reduced so she can be more compliant with IS. Will decrease as below. Continue to encourage IS - requested RT assistance. Scheduled duoneb with continued home bronchodilater/ CS. Check CXR. Will d/w Dr. Toney t/c adding steroid taper and/or abs pending CXR results. Current Visit: Yes (4) Chronic pain disorder Status: Acute Assessment and plan: Appreciate pain mgmt input. Continue current regimen. Current Visit: Yes (5) Anxiety Status: Acute Assessment and plan: Will decrease klonipin qhs. Reduce xanax and change to PRN. These are home meds. Current Visit: Yes (6) Prophylactic measure Status: Acute Assessment and plan: 1. DVT ppx: SCD in place. Heparin drip. Monitor closely for bleed. 2. GI ppx: PPI daily 3. Dispo: continue to monitor in ICU until H/H stable when PTT therapeutic. Current Visit: Yes Subjective Patient reports: Present: no new complaints, still having pain (Cough is persistent. No hematuria. ), flatus, no bowel movement. Absent: nausea, vomiting (Persistent cough. Inconsistent IS use. ) Exam - Constitutional Vitals: Period Temp Pulse Resp BP Sys/Michaels Pulse Ox Last 24 Hr 97.9 F-100.7 F 78-115 13-32 71-137/46-94 94-100 General appearance: other (Sleepy. Has answers questions appropriately - difficulty following instruction for IS use. Follows other commands well. ) - Head Head exam: Present: atraumatic - Eye Eye exam: Present: EOMI. Absent: conjunctival injection, nystagmus, scleral icterus Pupils: Present: STEPHANIE - Neck Neck exam: Present: normal inspection, trachea midline - Respiratory Respiratory exam: Present: other (Course breath sounds with decreased BS - worse than previously. Mild exp wheeze. ) - Cardiovascular Cardiovascular exam: Present: RRR - GI/Abdominal GI/Abdominal exam: Present: hypoactive bowel sounds, soft. 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 Absent: motor sensory deficit - Skin Skin exam: Present: normal color, warm Results - Labs CBC & BMP: 01/15/17 10:10 01/15/17 04:32 Labs: PTT 36
[2017-01-15] MEDS ORDERED: BISACODYL 5 MG TABLET PO ONE (09:58)
--- NOTE | 2017-01-15 10:06 | XRay Report ---
Referring Physician: RITCHIE Jiménez Exam: XR chest 1V portable Date: January 15, 2017 at 9:37 AM Reason: Cough Comparison: Chest one view portable January 13, 2017 Findings: A right IJ catheter is again place, and spinal neurostimulator leads are again present. The cardiac silhouette is upper normal in size. Mild bibasilar opacities are present and are most consistent with atelectasis. However, there could be superimposed pneumonia, especially at the right lung base. No pneumothorax is identified. The osseous structures appear stable. Impression: There has been no significant change. PROCEDURE INTERPRETED AT [facility] DEPARTMENT OF RADIOLOGY Final Report Signed by: Dr. Yudith Alva
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
[2017-01-15 11:32] LABS: Hematocrit 26.2 VOL% (35.7-47.0); Hemoglobin 8.1 GM/DL (12.0-16.0)
[2017-01-15] MEDS: BUTALBITAL/ACETAMIN/CAFFEINE 50-325-40 MG TABLET PO PRN (11:40)
--- NOTE | 2017-01-15 12:52 | Urology Progress Note ---
Assessment and Plan (1) Kidney laceration Status: Acute Assessment and plan: We will maintain bedrest and observation. Repeat CT scan in a few days. Follow hematocrits. Current Visit: Yes Qualifiers: Laterality: left Urology - PN: Subj Interval history: Patient seems stable. Heparin is not therapeutic yet. Her urine remains clear. On exam her abdomen is benign. I do not feel mass in the left upper quadrant. I do not see any Brock Soriano sign. She can get up to the bathroom. I have related to the nurses if we began having red urine, they will have to turn off the heparin. H&H noted. Exam - Constitutional Vitals: Period Temp Pulse Resp BP Sys/Michaels Pulse Ox Last 24 Hr 97.9 F-100.7 F 81-115 13-32 71-137/46-94 94-100 Results - Labs CBC & BMP: 01/15/17 10:10 01/15/17 04:32
[2017-01-15] MEDS: ALBUTEROL/IPRATROPIUM 3 ML NEB RESP TX PRN (13:05)
[2017-01-15 15:22] LABS: Partial Thromboplastin Time 41.6 SECS (0-40)
[2017-01-15] MEDS: PROMETHAZINE 25 MG/1 ML VIAL IM PRN (16:08)
[2017-01-15] MEDS: tiZANidine 4 MG TABLET PO PRN ×2 (16:09→22:21)
[2017-01-15 17:15] LABS: Hematocrit 27.4 VOL% (35.7-47.0); Hemoglobin 8.4 GM/DL (12.0-16.0)
[2017-01-15 19:32] LABS: PT Patient Result 10.7 SECS; Partial Thromboplastin Time 40.5 SECS (0-40)
[2017-01-15] MEDS: HEPARIN DRIP 25,000 UNITS/500 ML PREMIX IV SCH (19:52)
[2017-01-15] MEDS: QUEtiapine 100 MG TABLET PO SCH (20:49)
[2017-01-15] MEDS: clonazePAM 0.5 MG TABLET PO SCH (20:49)
[2017-01-16 00:12] LABS: Hematocrit 26.3 VOL% (35.7-47.0); Hemoglobin 8.2 GM/DL (12.0-16.0)
[2017-01-16 00:58] LABS: PT Patient Result 10.7 SECS; Partial Thromboplastin Time 38.3 SECS (0-40)
[2017-01-16] MEDS: BUTALBITAL/ACETAMIN/CAFFEINE 50-325-40 MG TABLET PO PRN ×2 (01:17→20:41)
[2017-01-16] MEDS ORDERED: HEPARIN 5,000 UNIT/1 ML VIAL IV ONE (01:18)
[2017-01-16] MEDS: ALBUTEROL 2.5 MG/3 ML NEB RESP TX SCH ×4 (01:41→20:00)
[2017-01-16] MEDS: PROMETHAZINE 25 MG/1 ML VIAL IM PRN ×3 (04:36→22:50)
[2017-01-16] MEDS: oxyCODONE/ACETAMINOPHEN 5-325 MG TABLET PO PRN ×3 (04:37→15:50)
[2017-01-16 04:44] LABS: Basophils % 0.4 % (0.0-0.8); Eosinophils # 0.1 10*3/uL (0.0-0.87); Eosinophils % 1.9 % (0.00-10.9); Hematocrit 26.9 VOL% (35.7-47.0); Hemoglobin 8.6 GM/DL (12.0-16.0); Immature Granulocytes % 0.6 %; Immature Granulocytes Absolute 0.04 #; Lymphocytes # 0.9 10*3/uL (1.4-4.0); Lymphocytes % 12.7 % (21.3-54.2); Mean Corpuscular Hemoglobin 25 PG (27-34); Mean Corpuscular Volume 78.2 FL (87-102); Monocytes # 0.4 10*3/uL (0.11-0.8); Monocytes % 5.9 % (1.7-12.7); Neutrophils # 5.7 10*3/uL (1.4-7.4); Neutrophils % 78.5 % (38.7-73.9); Platelet Count 185 T/CUMM (130-400); Red Blood Count 3.44 MC/CUMM (3.8-5.5); Red Cell Distribution Width 17.4 % (9.3-17.3); White Blood Count 7.3 T/CUMM (4-12)
[2017-01-16] MEDS: tiZANidine 4 MG TABLET PO PRN (06:46)
[2017-01-16] MEDS: LEVOTHYROXINE 100 MCG TABLET PO SCH (06:46)
[2017-01-16 07:12] LABS: PT Patient Result 10.9 SECS
[2017-01-16 07:22] LABS: Partial Thromboplastin Time 47.7 SECS (0-40)
[2017-01-16] MEDS: LIDOCAINE 5% PATCH TRANSDERM SCH (08:44)
[2017-01-16] MEDS: PREGABALIN 75 MG CAPSULE PO SCH ×3 (08:53→20:42)
[2017-01-16 08:54] LABS: Hematocrit 28.5 VOL% (35.7-47.0); Hemoglobin 8.8 GM/DL (12.0-16.0)
[2017-01-16] MEDS: ACETAMINOPHEN 325 MG TABLET PO PRN (08:54)
[2017-01-16] MEDS: buPROPion SR 150 MG TABLET PO SCH (08:54)
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
--- NOTE | 2017-01-16 13:03 | Urology Progress Note ---
Assessment and Plan (1) Kidney laceration Status: Acute Assessment and plan: We will maintain bedrest and observation. Repeat CT scan in a few days. Follow hematocrits. Patient is stable. No gross hematuria. Creatinine is stable. H&H is stable. Continue monitoring as we are. Current Visit: Yes Qualifiers: Laterality: left Urology - PN: Subj Interval history: Patient is stable in the ICU. The nurse reports that she still not quite therapeutic on her heparin. She complains a lot of pain in her lower back. But she is a chronic pain patient. Her urine is clear with no hematuria. Her creatinine yesterday was normal. On exam her abdomen is soft and flat but she does have left upper quadrant tenderness. But there is no Brock Soriano sign. Continue monitoring as we are. Exam - Constitutional Vitals: Period Temp Pulse Resp BP Sys/Michaels Pulse Ox Last 24 Hr 98.2 F-98.5 F 76-92 15-54 100-159/70-96 96-100 - GI/Abdominal GI/Abdominal exam: Present: hypoactive bowel sounds, psoas sign (Left), tenderness (Left upper quadrant). Absent: ascites, firm, guarding, rebound Results - Labs CBC & BMP: 01/16/17 04:25 01/15/17 04:32
[2017-01-16 14:42] LABS: PT Patient Result 11.1 SECS
[2017-01-16 14:54] LABS: Partial Thromboplastin Time 46.9 SECS (0-40)
[2017-01-16] MEDS: QUEtiapine 100 MG TABLET PO SCH (20:41)
[2017-01-16] MEDS: ONDANSETRON 4 MG/2 ML VIAL IV PRN (20:41)
[2017-01-16] MEDS: clonazePAM 0.5 MG TABLET PO SCH (20:42)
[2017-01-16] MEDS: FLUTICASONE/SALMETEROL 250-50 DISKUS 14 DOSE INH SCH (20:42)
[2017-01-16 21:54] LABS: PT Patient Result 10.9 SECS
[2017-01-16 22:12] LABS: Partial Thromboplastin Time 50.2 SECS (0-40)
[2017-01-16] MEDS: HYDROmorphone 2 MG/1 ML VIAL IV PRN (22:50)
[2017-01-17] MEDS: ALBUTEROL 2.5 MG/3 ML NEB RESP TX SCH ×4 (01:24→20:11)
[2017-01-17 03:36] LABS: INR 1.1; PT Patient Result 11.3 SECS
[2017-01-17 03:45] LABS: Partial Thromboplastin Time 60.2 SECS (0-40)
[2017-01-17] MEDS: HEPARIN DRIP 25,000 UNITS/500 ML PREMIX IV SCH ×3 (05:00→22:08)
[2017-01-17] MEDS: LEVOTHYROXINE 100 MCG TABLET PO SCH (06:10)
[2017-01-17 06:33] LABS: Basophils % 0.4 % (0.0-0.8); Eosinophils # 0.2 10*3/uL (0.0-0.87); Eosinophils % 1.8 % (0.00-10.9); Hematocrit 27.4 VOL% (35.7-47.0); Hemoglobin 8.4 GM/DL (12.0-16.0); Immature Granulocytes % 0.4 %; Immature Granulocytes Absolute 0.03 #; Lymphocytes % 11.5 % (21.3-54.2); Mean Corpuscular HGB Conc 30.7 GM/DL (32-36); Mean Corpuscular Hemoglobin 25 PG (27-34); Mean Corpuscular Volume 81.3 FL (87-102); Mean Platelet Volume 10.9 FL (9.6-12.0); Monocytes # 0.4 10*3/uL (0.11-0.8); Monocytes % 5.3 % (1.7-12.7); Neutrophils # 6.6 10*3/uL (1.4-7.4); Neutrophils % 80.6 % (38.7-73.9); Platelet Count 199 T/CUMM (130-400); Red Blood Count 3.37 MC/CUMM (3.8-5.5); Red Cell Distribution Width 17.3 % (9.3-17.3); White Blood Count 8.2 T/CUMM (4-12)
[2017-01-17] MEDS: PROMETHAZINE 25 MG/1 ML VIAL IM PRN ×3 (06:39→22:07)
[2017-01-17] MEDS: oxyCODONE/ACETAMINOPHEN 5-325 MG TABLET PO PRN ×3 (06:39→20:19)
[2017-01-17] MEDS: buPROPion SR 150 MG TABLET PO SCH (09:07)
[2017-01-17] MEDS: FLUTICASONE/SALMETEROL 250-50 DISKUS 14 DOSE INH SCH ×2 (09:07→20:25)
[2017-01-17] MEDS: PREGABALIN 75 MG CAPSULE PO SCH ×3 (09:07→20:19)
[2017-01-17] MEDS: ALPRAZolam 0.5 MG TABLET PO PRN (09:09)
[2017-01-17 09:20] LABS: Partial Thromboplastin Time 49.7 SECS (0-40)
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
[2017-01-17] MEDS: HYDROmorphone 2 MG/1 ML VIAL IV PRN ×3 (10:24→22:08)
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
--- NOTE | 2017-01-17 14:06 | Urology Progress Note ---
Assessment and Plan (1) Kidney laceration Status: Acute Assessment and plan: We will maintain bedrest and observation. Repeat CT scan in a few days. Follow hematocrits. Patient is stable. No gross hematuria. Creatinine is stable. H&H is stable. Continue monitoring as we are. Current Visit: Yes Qualifiers: Laterality: left Urology - PN: Subj Interval history: From a standpoint, the patient is stable. She has not had any hematuria. I think her heparin is now therapeutic. At this point I do not recommend anything different. Exam - Constitutional Vitals: Period Temp Pulse Resp BP Sys/Michaels Pulse Ox Last 24 Hr 97.5 F-99.3 F 72-93 14-23 101-152/58-100 91-100 Results - Labs CBC & BMP: 01/17/17 06:27 01/15/17 04:32
[2017-01-17 14:48] LABS: PT Patient Result 11.1 SECS
[2017-01-17 14:49] LABS: Partial Thromboplastin Time 55.1 SECS (0-40)
[2017-01-17] MEDS: clonazePAM 0.5 MG TABLET PO SCH (20:20)
[2017-01-17] MEDS: QUEtiapine 100 MG TABLET PO SCH (20:20)
[2017-01-18] MEDS: ALBUTEROL 2.5 MG/3 ML NEB RESP TX SCH ×5 (00:56→23:56)
[2017-01-18 03:50] LABS: Basophils % 0.3 % (0.0-0.8); Eosinophils # 0.2 10*3/uL (0.0-0.87); Eosinophils % 2.3 % (0.00-10.9); Hematocrit 27.8 VOL% (35.7-47.0); Hemoglobin 8.4 GM/DL (12.0-16.0); Immature Granulocytes % 0.6 %; Immature Granulocytes Absolute 0.04 #; Lymphocytes # 1.3 10*3/uL (1.4-4.0); Lymphocytes % 18.3 % (21.3-54.2); Mean Corpuscular HGB Conc 30.2 GM/DL (32-36); Mean Corpuscular Hemoglobin 25 PG (27-34); Mean Platelet Volume 10.7 FL (9.6-12.0); Monocytes # 0.4 10*3/uL (0.11-0.8); Monocytes % 6.3 % (1.7-12.7); Neutrophils # 4.9 10*3/uL (1.4-7.4); Neutrophils % 72.2 % (38.7-73.9); Platelet Count 216 T/CUMM (130-400); Red Blood Count 3.43 MC/CUMM (3.8-5.5); Red Cell Distribution Width 17.4 % (9.3-17.3); White Blood Count 6.8 T/CUMM (4-12)
[2017-01-18 05:37] LABS: Partial Thromboplastin Time 68.1 SECS (0-40)
[2017-01-18 06:02] LABS: Calcium 8.1 MG/DL (8.5-10.1); Osmolality,Calculated 287.6 MOS/KG (273-304)
[2017-01-18] MEDS: LEVOTHYROXINE 100 MCG TABLET PO SCH (06:34)
[2017-01-18] MEDS: oxyCODONE/ACETAMINOPHEN 5-325 MG TABLET PO PRN (06:34)
--- NOTE | 2017-01-18 07:14 | General Surgery Progress Note ---
Assessment and Plan (1) Kidney laceration Status: Acute Assessment and plan: Continue trending daily hemoglobins. Transfer to floor. Bathroom privileges. Current Visit: Yes Qualifiers: Laterality: left (2) Internal carotid artery injury Status: Acute Assessment and plan: Continue heparin drip. Repeat CTA head and neck on . Current Visit: Yes Subjective Patient reports: Present: no new complaints, still having pain, afebrile Narrative: The patient had no events over the weekend. Her heparin drip is therapeutic now. She had a repeat head CT over the weekend for headaches that was negative. She has a ENT consult pending this morning for TMJ pain and cracked molars. Exam - Constitutional Vitals: Period Temp Pulse Resp BP Sys/Michaels Pulse Ox Last 24 Hr 97.5 F-99.8 F 72-90 11-23 101-151/70-98 93-100 General appearance: no acute distress, over weight - Head Head exam: Present: normal inspection, normocephalic - Eye Eye exam: Present: EOMI Pupils: Present: STEPHANIE - ENT ENT exam: Present: normal exam Mouth exam: Present: normal external inspection, normal voice - Neck Neck exam: Present: normal inspection, trachea midline - Respiratory Respiratory exam: Present: clear to auscultation bilaterally. Absent: accessory muscle use, chest wall tenderness - Cardiovascular Cardiovascular exam: Present: RRR. Absent: systolic murmur, tachycardia - GI/Abdominal GI/Abdominal exam: Present: soft. Absent: tenderness, rebound - Extremities Exam Extremities exam: Present: normal inspection, normal capillary refill - Back Exam Back exam: Present: normal inspection - Neurological Exam Neurological exam: Present: alert, oriented X3 Speech: Present: normal - Skin Skin exam: Present: normal color, warm Results - Labs CBC & BMP: 01/18/17 03:30 01/18/17 05:00
[2017-01-18] MEDS: PROMETHAZINE 25 MG/1 ML VIAL IM PRN ×3 (07:27→20:59)
[2017-01-18] MEDS: HYDROmorphone 2 MG/1 ML VIAL IV PRN ×4 (07:31→21:03)
--- NOTE | 2017-01-18 08:00 | Physician Query Form ---
CLICK EDIT DOCUMENT TO SELECT QUERY ANSWER --> OK --> SIGN Mary Kidd RN Clinical Ball Assembler W) [phone] (f) [phone] [email or web address]: Make your selection(s) from the choices in EACH section by typing an "x" and enter comments in the comment section. Please use your independent medical judgment in providing your response. This request does not imply that any particular answer is desired or expected. CLINICAL INDICATORS: (Providers should not edit this section) Based on documentation of "Her hemoglobins have drifted down 1 g overnight but then were stable on this morning's labs but we will go ahead and transfuse her 2 units of packed red blood cells and continue to monitor this". H/H on admission of 05/20 and dropped to 03/11. Based on the above, could you clarify which of the following conditions you are evaluating, treating, and/or monitoring? ( ) Blood loss anemia ( ) acute ( ) chronic ( ) acute on chronic (x) Acute blood loss anemia on baseline chronic anemia ( ) Acute blood loss anemia as a complication of a procedure ( ) Iron deficiency anemia not associated with blood loss ( ) Dilutional anemia due to IV fluids ( ) Anemia due to chemotherapy ( ) Anemia due to neoplastic disease ( ) Anemia due to chronic kidney disease ( ) Pernicious anemia ( ) Aplastic anemia ( ) Hemolytic anemia ( ) immune ( ) non-immune - please specify cause: ( ) Anemia due to other condition, please specify: ( ) Clinically unable to determine COMMENTS: Use of terms such as suspected, likely, or probable (associated with a specific diagnosis that is being evaluated, monitored, or treated as if it exists) are acceptable and can be restated in the discharge summary if not ruled out. MTDD
[2017-01-18] MEDS: POTASSIUM CHLORIDE RIDER 20 MEQ in PREMIX 1 EACH IV PRN ×2 (08:31→11:09)
[2017-01-18] MEDS: FLUTICASONE/SALMETEROL 250-50 DISKUS 14 DOSE INH SCH ×2 (09:49→20:59)
[2017-01-18] MEDS: buPROPion SR 150 MG TABLET PO SCH (09:50)
[2017-01-18] MEDS: ALPRAZolam 0.5 MG TABLET PO PRN (09:51)
[2017-01-18] MEDS: tiZANidine 4 MG TABLET PO PRN (09:51)
[2017-01-18] MEDS: PREGABALIN 75 MG CAPSULE PO SCH (11:42)
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
--- NOTE | 2017-01-18 12:41 | Urology Progress Note ---
Assessment and Plan (1) Kidney laceration Status: Acute Assessment and plan: We will maintain bedrest and observation. Repeat CT scan in a few days. Follow hematocrits. Patient is stable. No gross hematuria. Creatinine is stable. H&H is stable. Continue monitoring as we are. Current Visit: Yes Qualifiers: Laterality: left Urology - PN: Subj Interval history: Patient is now on the floor. Her urine is clear with no hematuria. Her hemoglobin and hematocrit are stable. Creatinine is normal at 0.8. She still has some left upper quadrant pain and tenderness. On exam she has no mass and there is no Brock Soriano sign. We will continue to observe this. As stated previously, if she bleeds probably the best thing to do is get interventional radiology to do an arteriogram and embolize bleeding vessel in that upper pole. Exam - Constitutional Vitals: Period Temp Pulse Resp BP Sys/Michaels Pulse Ox Last 24 Hr 97.9 F-99.8 F 72-90 11-22 112-151/70-98 93-100 Results - Labs CBC & BMP: 01/18/17 03:30 01/18/17 05:00
[2017-01-18] MEDS: POTASSIUM CHLORIDE RIDER 10 MEQ in PREMIX 1 EACH IV PRN (14:35)
[2017-01-18] MEDS: BACLOFEN 10 MG TABLET PO SCH ×2 (15:43→20:59)
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
[2017-01-18] MEDS: clonazePAM 0.5 MG TABLET PO SCH (20:59)
[2017-01-18] MEDS: QUEtiapine 100 MG TABLET PO SCH (20:59)
[2017-01-19] MEDS: oxyCODONE/ACETAMINOPHEN 5-325 MG TABLET PO PRN (02:50)
[2017-01-19] MEDS: HYDROmorphone 2 MG/1 ML VIAL IV PRN ×4 (06:13→22:25)
[2017-01-19] MEDS: LEVOTHYROXINE 100 MCG TABLET PO SCH (06:15)
[2017-01-19 06:26] LABS: Basophils % 0.5 % (0.0-0.8); Eosinophils # 0.2 10*3/uL (0.0-0.87); Eosinophils % 2.6 % (0.00-10.9); Hematocrit 29.2 VOL% (35.7-47.0); Immature Granulocytes % 0.5 %; Immature Granulocytes Absolute 0.03 #; Lymphocytes # 1.3 10*3/uL (1.4-4.0); Lymphocytes % 21.3 % (21.3-54.2); Mean Corpuscular HGB Conc 30.8 GM/DL (32-36); Mean Corpuscular Hemoglobin 25 PG (27-34); Mean Corpuscular Volume 80.2 FL (87-102); Mean Platelet Volume 10.5 FL (9.6-12.0); Monocytes # 0.5 10*3/uL (0.11-0.8); Monocytes % 7.8 % (1.7-12.7); Neutrophils # 4.1 10*3/uL (1.4-7.4); Neutrophils % 67.3 % (38.7-73.9); Platelet Count 258 T/CUMM (130-400); Red Blood Count 3.64 MC/CUMM (3.8-5.5); Red Cell Distribution Width 17.5 % (9.3-17.3); White Blood Count 6.1 T/CUMM (4-12)
[2017-01-19 07:04] LABS: Calcium 8.4 MG/DL (8.5-10.1); Magnesium 2.3 MG/DL (1.8-2.4); Osmolality,Calculated 285.7 MOS/KG (273-304); Potassium 3.7 MMOL/L (3.5-5.1)
[2017-01-19] MEDS: POTASSIUM CHLORIDE RIDER 10 MEQ in PREMIX 1 EACH IV PRN (07:48)
[2017-01-19] MEDS: ALBUTEROL 2.5 MG/3 ML NEB RESP TX SCH ×3 (07:53→21:46)
--- NOTE | 2017-01-19 08:45 | General Surgery Progress Note ---
Assessment and Plan (1) Kidney laceration Status: Acute Assessment and plan: Hemoglobin is stable. PTT is therapeutic. Continue to monitor. Current Visit: Yes Qualifiers: Laterality: left (2) Internal carotid artery injury Status: Acute Assessment and plan: Continue heparin drip. Repeat CTA head and neck on . Current Visit: Yes Subjective Patient reports: Present: no new complaints, feels better, afebrile Exam - Constitutional Vitals: Period Temp Pulse Resp BP Sys/Michaels Pulse Ox Last 24 Hr 97.1 F-99.0 F 68-90 13-18 123-142/62-89 93-99 General appearance: no acute distress, over weight - Head Head exam: Present: normal inspection, normocephalic - Eye Eye exam: Present: EOMI Pupils: Present: STEPHANIE - ENT ENT exam: Present: normal exam Mouth exam: Present: normal external inspection, normal voice - Neck Neck exam: Present: normal inspection, trachea midline - Respiratory Respiratory exam: Present: clear to auscultation bilaterally. Absent: accessory muscle use, chest wall tenderness - Cardiovascular Cardiovascular exam: Present: RRR. Absent: systolic murmur, tachycardia - GI/Abdominal GI/Abdominal exam: Present: normal bowel sounds, soft. Absent: tenderness, rebound - Extremities Exam Extremities exam: Present: normal inspection, normal capillary refill - Back Exam Back exam: Present: normal inspection - Neurological Exam Neurological exam: Present: alert, oriented X3 Speech: Present: normal - Skin Skin exam: Present: normal color, warm Results - Labs CBC & BMP: 01/19/17 05:57 01/19/17 05:57
[2017-01-19] MEDS: BACLOFEN 10 MG TABLET PO SCH ×3 (09:20→22:24)
[2017-01-19] MEDS: buPROPion SR 150 MG TABLET PO SCH (09:21)
[2017-01-19] MEDS: FLUTICASONE/SALMETEROL 250-50 DISKUS 14 DOSE INH SCH ×2 (09:21→22:24)
[2017-01-19] MEDS: HEPARIN DRIP 25,000 UNITS/500 ML PREMIX IV SCH ×2 (09:45→19:30)
[2017-01-19 09:55] LABS: Partial Thromboplastin Time 32.9 SECS (0-40)
[2017-01-19] MEDS ORDERED: HEPARIN 5,000 UNIT/1 ML VIAL IV ONE (11:15)
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
--- NOTE | 2017-01-19 12:30 | Urology Progress Note ---
Assessment and Plan (1) Kidney laceration Status: Acute Assessment and plan: We will maintain bedrest and observation. Repeat CT scan in a few days. Follow hematocrits. Patient is stable. No gross hematuria. Creatinine is stable. H&H is stable. Continue monitoring as we are. Current Visit: Yes Qualifiers: Laterality: left Urology - PN: Subj Interval history: Primary service is still dealing with the heparin. It was therapeutic yesterday but not today. That does not make sense. She has not had any bleeding. She still has some vague left upper quadrant pain. There is no mass on exam and there is no bruising/Brock Soriano sign. We will continue to monitor her while she is on the heparin. Once she is off the heparin and I will sign off. Exam - Constitutional Vitals: Period Temp Pulse Resp BP Sys/Michaels Pulse Ox Last 24 Hr 97.1 F-99.0 F 68-90 16-18 123-150/62-96 95-98 Results - Labs CBC & BMP: 01/19/17 05:57 01/19/17 05:57
--- NOTE | 2017-01-19 16:06 | Progress Note ---
Assessment and Plan - Time spent with patient Time spent with patient: Less than 30 minutes (1) TMJ (sprain of temporomandibular joint) Status: Acute Assessment and plan: I discussed different direct and indirect stretching methods as a conservative treatment for her TMJ additionally we will obtain a CT I do not see a report stating whether or not this is been evaluated I do not think she has a fracture but with malocclusion I think is reasonable for us to check if there was one done occasionally these can show up later in which case would still be useful to make sure that there is anything. Thank you very much for this consult I will continue to follow this patient 01/19/2017 there is no mandibular fracture on this CT I recommend continued conservative care including ice and stretches she is tolerating this well with some improvement she can follow-up with me as an outpatient if this continues. Thank you very much for this consult I will sign off in this case by remain available if there is any questions or concerns Current Visit: Yes (2) Trismus Status: Acute Current Visit: Yes (3) Malocclusion Status: Acute Current Visit: Yes Family Medicine PN Sub Interval history: CT mandible reviewed with no evidence of mandibular fracture improving left jaw pain with stretches per patient no new ENT complaints per patient Exam (Progress Note) - Constitutional Vitals: Period Temp Pulse Resp BP Sys/Michaels Pulse Ox Last 24 Hr 97.1 F-98.4 F 68-90 16-18 123-150/73-96 95-98 General appearance: normal weight, no acute distress - Head Head exam: Present: normal inspection, normocephalic, other (Left TMJ tenderness improving) - ENT ENT exam: Present: normal exam, normal external ear exam, normal oropharynx - Neck Neck exam: Present: normal inspection - Respiratory Respiratory exam: Present: other (No shortness of breath or difficulty breathing ) - Extremities Exam Extremities exam: Present: normal inspection, normal capillary refill - Neurological Exam Neurological exam: Present: alert, oriented X3, CN II-XII intact - Psychiatric Psychiatric exam: Present: normal affect, normal mood - Skin Skin exam: Present: normal color, warm Results - Labs CBC & BMP: 01/19/17 05:57 01/19/17 05:57 Lab Results: I have reviewed the past 24 hour labs - Diagnostic Findings Procedure: CT: pending, image reviewed by me, report reviewed by me (No mandibular fracture visualized on CT by me or the radiologist) Specialty Discharge - Follow Up or Referrals Follow up with: Corey Crowell MD [Physician] - Aime Albarado MD [Physician] -
[2017-01-19 16:58] LABS: PT Patient Result 10.9 SECS
[2017-01-19 17:32] LABS: Partial Thromboplastin Time 62.1 SECS (0-40)
[2017-01-19] MEDS: PROMETHAZINE 25 MG/1 ML VIAL IM PRN (18:42)
[2017-01-19] MEDS: clonazePAM 0.5 MG TABLET PO SCH (22:24)
[2017-01-19] MEDS: QUEtiapine 100 MG TABLET PO SCH (22:24)
[2017-01-19 22:42] LABS: PT Patient Result 10.6 SECS
[2017-01-19 22:43] LABS: Partial Thromboplastin Time 53.2 SECS (0-40)
[2017-01-20] MEDS: HEPARIN DRIP 25,000 UNITS/500 ML PREMIX IV SCH ×3 (00:48→21:36)
[2017-01-20] MEDS: oxyCODONE/ACETAMINOPHEN 5-325 MG TABLET PO PRN ×3 (01:06→15:35)
[2017-01-20] MEDS: ALBUTEROL 2.5 MG/3 ML NEB RESP TX SCH ×4 (05:57→18:59)
[2017-01-20] MEDS: LEVOTHYROXINE 100 MCG TABLET PO SCH (06:18)
[2017-01-20 06:28] LABS: Basophils % 0.8 % (0.0-0.8); Eosinophils # 0.2 10*3/uL (0.0-0.87); Eosinophils % 3.2 % (0.00-10.9); Hematocrit 28.9 VOL% (35.7-47.0); Hemoglobin 8.9 GM/DL (12.0-16.0); Immature Granulocytes % 0.6 %; Immature Granulocytes Absolute 0.03 #; Lymphocytes # 1.4 10*3/uL (1.4-4.0); Lymphocytes % 28.5 % (21.3-54.2); Mean Corpuscular HGB Conc 30.8 GM/DL (32-36); Mean Corpuscular Hemoglobin 25 PG (27-34); Mean Corpuscular Volume 80.3 FL (87-102); Mean Platelet Volume 10.6 FL (9.6-12.0); Monocytes # 0.5 10*3/uL (0.11-0.8); Monocytes % 9.9 % (1.7-12.7); Neutrophils # 2.9 10*3/uL (1.4-7.4); Platelet Count 281 T/CUMM (130-400); Red Cell Distribution Width 17.3 % (9.3-17.3); White Blood Count 5.1 T/CUMM (4-12)
[2017-01-20 06:44] LABS: Calcium 8.9 MG/DL (8.5-10.1); Magnesium 2.2 MG/DL (1.8-2.4); Osmolality,Calculated 282.8 MOS/KG (273-304); Potassium 3.6 MMOL/L (3.5-5.1)
[2017-01-20] MEDS: FLUTICASONE/SALMETEROL 250-50 DISKUS 14 DOSE INH SCH ×2 (08:35→21:28)
[2017-01-20] MEDS: buPROPion SR 150 MG TABLET PO SCH (08:36)
[2017-01-20] MEDS: HYDROmorphone 2 MG/1 ML VIAL IV PRN ×4 (08:36→21:34)
[2017-01-20] MEDS: BACLOFEN 10 MG TABLET PO SCH ×3 (08:36→21:28)
--- NOTE | 2017-01-20 09:26 | General Surgery Progress Note ---
Assessment and Plan (1) Kidney laceration Status: Acute Assessment and plan: Hemoglobin is stable. PTT is therapeutic. Continue to monitor. Current Visit: Yes Qualifiers: Laterality: left (2) Internal carotid artery injury Status: Acute Assessment and plan: Continue heparin drip. Repeat CTA head and neck tomorrow Current Visit: Yes Subjective Patient reports: Present: no new complaints, afebrile Exam - Constitutional Vitals: Period Temp Pulse Resp BP Sys/Michaels Pulse Ox Last 24 Hr 97.4 F-99.2 F 65-91 16-20 137-154/81-98 95-99 General appearance: no acute distress, over weight - Head Head exam: Present: normal inspection, normocephalic - Eye Eye exam: Present: EOMI Pupils: Present: STEPHANIE - ENT ENT exam: Present: normal exam Mouth exam: Present: normal external inspection, normal voice - Neck Neck exam: Present: normal inspection, trachea midline - Respiratory Respiratory exam: Present: clear to auscultation bilaterally. Absent: accessory muscle use, chest wall tenderness - Cardiovascular Cardiovascular exam: Present: RRR. Absent: systolic murmur, tachycardia - GI/Abdominal GI/Abdominal exam: Present: soft. Absent: tenderness, rebound - Extremities Exam Extremities exam: Present: normal inspection, normal capillary refill - Back Exam Back exam: Present: normal inspection - Neurological Exam Neurological exam: Present: alert, oriented X3 Speech: Present: normal - Skin Skin exam: Present: normal color, warm Results - Labs CBC & BMP: 01/20/17 04:49 01/20/17 04:49 Specialty Discharge - Follow Up or Referrals Follow up with: Corey Crowell MD [Physician] - Aime Albarado MD [Physician] -
[2017-01-20] MEDS: ALPRAZolam 0.5 MG TABLET PO PRN (11:03)
--- NOTE | 2017-01-20 12:31 | Urology Progress Note ---
Assessment and Plan (1) Kidney laceration Status: Acute Assessment and plan: We will maintain bedrest and observation. Repeat CT scan in a few days. Follow hematocrits. Patient is stable. No gross hematuria. Creatinine is stable. H&H is stable. Continue monitoring as we are. Current Visit: Yes Qualifiers: Laterality: left Urology - PN: Subj Interval history: Patient is stable from a standpoint. No gross hematuria. Still mild left upper quadrant tenderness. Little to add. Exam - Constitutional Vitals: Period Temp Pulse Resp BP Sys/Michaels Pulse Ox Last 24 Hr 97.4 F-99.2 F 65-91 16-20 137-154/81-98 95-99 Results - Labs CBC & BMP: 01/20/17 04:49 01/20/17 04:49 Specialty Discharge - Follow Up or Referrals Follow up with: Corey Crowell MD [Physician] - Aime Albarado MD [Physician] -
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
[2017-01-20] MEDS: QUEtiapine 100 MG TABLET PO SCH (21:28)
[2017-01-20] MEDS: clonazePAM 0.5 MG TABLET PO SCH (21:28)
[2017-01-21] MEDS: ALBUTEROL 2.5 MG/3 ML NEB RESP TX SCH ×2 (00:19→07:03)
[2017-01-21 05:02] LABS: Basophils % 0.6 % (0.0-0.8); Eosinophils # 0.2 10*3/uL (0.0-0.87); Eosinophils % 3.1 % (0.00-10.9); Hematocrit 31.8 VOL% (35.7-47.0); Hemoglobin 9.8 GM/DL (12.0-16.0); Immature Granulocytes % 0.7 %; Immature Granulocytes Absolute 0.05 #; Lymphocytes # 1.2 10*3/uL (1.4-4.0); Lymphocytes % 16.4 % (21.3-54.2); Mean Corpuscular HGB Conc 30.8 GM/DL (32-36); Mean Corpuscular Hemoglobin 25 PG (27-34); Mean Corpuscular Volume 79.7 FL (87-102); Mean Platelet Volume 10.6 FL (9.6-12.0); Monocytes # 0.5 10*3/uL (0.11-0.8); Monocytes % 7.5 % (1.7-12.7); Neutrophils # 5.2 10*3/uL (1.4-7.4); Neutrophils % 71.7 % (38.7-73.9); Platelet Count 310 T/CUMM (130-400); Red Blood Count 3.99 MC/CUMM (3.8-5.5); White Blood Count 7.2 T/CUMM (4-12)
[2017-01-21] MEDS: HYDROmorphone 2 MG/1 ML VIAL IV PRN ×4 (06:20→23:06)
[2017-01-21] MEDS: LEVOTHYROXINE 100 MCG TABLET PO SCH (06:20)
[2017-01-21] MEDS: FLUTICASONE/SALMETEROL 250-50 DISKUS 14 DOSE INH SCH ×2 (08:19→20:09)
[2017-01-21] MEDS: BACLOFEN 10 MG TABLET PO SCH ×3 (08:20→20:10)
[2017-01-21] MEDS: buPROPion SR 150 MG TABLET PO SCH (08:20)
[2017-01-21] MEDS: HEPARIN DRIP 25,000 UNITS/500 ML PREMIX IV SCH (10:09)
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
[2017-01-21] MEDS: oxyCODONE/ACETAMINOPHEN 5-325 MG TABLET PO PRN ×2 (14:11→19:35)
--- NOTE | 2017-01-21 16:06 | General Surgery Progress Note ---
Assessment and Plan (1) Kidney laceration Status: Acute Assessment and plan: Hemoglobin is stable. PTT is therapeutic. The patient has a continued irregularity in her carotid arteries is concerning for a subtle injury. We will continue Lovenox and start injection teaching for 1 month of therapy and repeat CTA in 1 month. Current Visit: Yes Qualifiers: Laterality: left (2) Internal carotid artery injury Status: Acute Assessment and plan: The patient has a continued irregularity in her carotid arteries is concerning for a subtle injury. We will continue Lovenox and start injection teaching for 1 month of therapy and repeat CTA in 1 month. Current Visit: Yes Subjective Patient reports: Present: no new complaints, afebrile Exam - Constitutional Vitals: Period Temp Pulse Resp BP Sys/Michaels Pulse Ox Last 24 Hr 96.3 F-98.4 F 69-82 17-18 128-151/69-101 96-99 General appearance: no acute distress, over weight - Head Head exam: Present: normal inspection, normocephalic - Eye Eye exam: Present: EOMI. Absent: scleral icterus Pupils: Present: STEPHANIE - ENT ENT exam: Present: normal exam Mouth exam: Present: normal external inspection, normal voice - Neck Neck exam: Present: normal inspection, trachea midline - Respiratory Respiratory exam: Present: clear to auscultation bilaterally. Absent: accessory muscle use, chest wall tenderness - Cardiovascular Cardiovascular exam: Present: RRR. Absent: systolic murmur, tachycardia - GI/Abdominal GI/Abdominal exam: Present: soft. Absent: tenderness, rebound - Extremities Exam Extremities exam: Present: normal inspection, normal capillary refill - Back Exam Back exam: Present: normal inspection - Neurological Exam Neurological exam: Present: alert, oriented X3 Speech: Present: normal - Skin Skin exam: Present: normal color, warm Results - Labs CBC & BMP: 01/21/17 04:33 01/20/17 04:49 - Diagnostic Findings Procedure: CT: image reviewed by me, report reviewed by me Specialty Discharge - Follow Up or Referrals Follow up with: Corey Crowell MD [Physician] - Aime Albarado MD [Physician] - 02/03/17 2:00 pm
[2017-01-21] MEDS: clonazePAM 0.5 MG TABLET PO SCH (20:10)
[2017-01-21] MEDS: TOPIRAMATE 25 MG TABLET PO SCH (20:10)
[2017-01-21] MEDS: QUEtiapine 100 MG TABLET PO SCH (20:10)
[2017-01-22] MEDS: HYDROmorphone 2 MG/1 ML VIAL IV PRN (05:15)
[2017-01-22] MEDS: HEPARIN DRIP 25,000 UNITS/500 ML PREMIX IV SCH (05:21)
[2017-01-22] MEDS: LEVOTHYROXINE 100 MCG TABLET PO SCH (06:45)
[2017-01-22] MEDS ORDERED: ENOXAPARIN 80 MG/0.8 ML SYRINGE SUBCUT SCH (09:00)
[2017-01-22] MEDS: oxyCODONE/ACETAMINOPHEN 5-325 MG TABLET PO PRN (09:53)
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
[2017-01-22] MEDS: buPROPion SR 150 MG TABLET PO SCH (09:56)
[2017-01-22] MEDS: BACLOFEN 10 MG TABLET PO SCH (09:56)
[2017-01-22] MEDS: TOPIRAMATE 25 MG TABLET PO SCH (09:56)
[2017-01-22] MEDS: FLUTICASONE/SALMETEROL 250-50 DISKUS 14 DOSE INH SCH (10:00)
[2017-01-22 11:21] VITALS: BP 162/85
== END 2017-01-22 13:25 | disposition home or self-care (01) | DRG 964 ==
LOC: EDUNIT# → EDBD → N.ED 14:02 → N.EDINP 14:02 → OBSVTOIN 15:22 → N.ICU 15:38 → N.3E 01-12 10:05 → N.CC 01-13 21:37 → N.3E 01-18 12:04
PROVIDERS: ADMIT Surgery; ATTEND Surgery